=== PATIENT | female | born 1950 | race Caucasian/White ===

== ENCOUNTER 2016-02-27 20:00 | Emergency (ER) | payer MEDICARE, MEDICAID ==
[2016-02-27] MEDS ORDERED: Sodium Chloride 0.9% 1,000 ML IV ONE (20:09)
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
[2016-02-27] MEDS ORDERED: Morphine Sulfate 2 mg/mL 1mL Syr ONE ×2 (20:33→23:06)
[2016-02-27 20:59] LABS: % BASOPHILS 0.2 % (0.0-2.0); % EOSINOPHILS 0.7 % (0.0-5.0); % LYMPHOCYTES 20.8 % (20.0-50.0); % MONOCYTES 6.8 % (2.0-10.0); % NEUTROPHILS 71.5 % (40.0-80.0); HEMATOCRIT 46.3 % (35.0-45.0); HEMOGLOBIN 15.1 gm/dL (11.7-16.1); MEAN CELL VOLUME 88.8 fl (81-100); MEAN CORPUSCULAR HGB CONC 32.7 pg (28.0-36.0); MEAN PLATELET VOLUME 11.3 fl; PLATELET COUNT 196 Th/cmm (150-400); RED BLOOD COUNT 5.21 Mil/cmm (3.80-5.20); WHITE BLOOD COUNT 9.9 Th/cmm (4.8-10.8)
[2016-02-27 21:08] LABS: ALB/GLOB RATIO 1.3 (1.0-1.8); ALKALINE PHOSPHATASE 111 U/L (34-104); ANION GAP 10.9 (7.0-16.0); BILIRUBIN,TOTAL 0.5 mg/dL (0.3-1.0); BUN - UREA NITROGEN 22 mg/dL (7-25); BUN/CREATININE RATIO 31.4; CALCIUM SERUM 9.8 mg/dL (8.6-10.3); CARBON DIOXIDE 26.4 mEq/L (21.0-31.0); CHLORIDE 102 mEq/L (98-107); CREATININE - SERUM 0.7 mg/dL (0.6-1.2); GLUCOSE 163 mg/dL (70-105); POTASSIUM SERUM 3.3 mEq/L (3.5-5.1); SGOT 28 U/L (13-39); SGPT/ALT 22 U/L (7-52); SODIUM SERUM 136 mEq/L (136-145)
[2016-02-27 22:10] LABS: INR 1.02 (0.5-1.4); PROTHROMBIN TIME (TEST) 10.1 SECONDS (9.5-11.5)
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
== END 2016-02-27 23:45 | disposition home or self-care (01) ==
LOC: ER 20:00
DX: S16.1XXA Strain of muscle, fascia and tendon at neck level, initial encounter (principal); I10 Essential (primary) hypertension; X58.XXXA Exposure to other specified factors, initial encounter; Y93.89 Activity, other specified; Y92.89 Other specified places as the place of occurrence of the external cause; Y99.8 Other external cause status
CPT/HCPCS: 99285; 96361; 70450; 96374; 71020; 96375; 96376; 93005; 73030; 72125; 84484; 36415; 85025; 85610; 82550; 80053; J2270 ×2; J2405; J7030; Z7610